=== PATIENT | female | born 1935 | race Caucasian/White ===

== ENCOUNTER → 2016-10-03 | Outpatient (CLI) | payer BC ==
[~2016-10-03] MED LIST: CALC500C70 PO; CHOL20009 PO; DOCU-94 PO; ESCI1TAB6 PO; RANI300T2 PO; SIMV20TA2 PO
[2016-10-03 17:32] LABS: URINE APPEARANCE CLEAR (CLEAR); URINE BILIRUBIN NEG (NEG); URINE COLOR YELLOW; URINE NITRITE NEG (NEG); URINE SPECIFIC GRAVITY 1.007 (1.000-1.030); UROBILINOGEN NEG (NEG)
[2016-10-03 17:42] LABS: MANUAL MICROSCOPIC REQUIRED? NO; REVIEW REQ? NO
== END | disposition home or self-care (01) ==
LOC: C.LABBC 15:00
PROVIDERS: ATTEND Family Medicine
DX: R39.9 Unspecified symptoms and signs involving the genitourinary system (principal)

== ENCOUNTER → 2016-12-31 | Outpatient (CLI) | payer BC | END | disposition home or self-care (01) | LOC: C.LABSPEC 13:24 | PROVIDERS: ATTEND Physician Assistant | DX: N90.9 Noninflammatory disorder of vulva and perineum, unspecified (principal) ==

== ENCOUNTER → 2017-01-21 | Outpatient (CLI) | payer BC ==
[2017-01-21 13:24] LABS: URINE APPEARANCE CLEAR (CLEAR); URINE BILIRUBIN NEG (NEG); URINE COLOR YELLOW; URINE EPITHELIAL CELL AUTO 0-5 /lpf (0-5); URINE NITRITE NEG (NEG); URINE SPECIFIC GRAVITY 1.005 (1.000-1.030); UROBILINOGEN NEG (NEG)
[2017-01-21 13:41] LABS: MANUAL MICROSCOPIC REQUIRED? NO; REVIEW REQ? NO
== END | disposition home or self-care (01) ==
LOC: C.LABBC 12:08
PROVIDERS: ATTEND Family Medicine
DX: R30.0 Dysuria (principal)

== ENCOUNTER → 2017-03-05 | Outpatient (CLI) | payer BC ==
--- NOTE | 2017-03-05 13:30 | DIAGNOSTIC IMAGING REPORT ---
ABDOMEN 2VIEW W/PA CHEST RTN CLINICAL HISTORY: Abdominal ll. Tenderness; left leg pain pain COMPARISON STUDY: No previous studies for comparison. FINDINGS: The soft tissues, psoas shadows, renal outlines and intestinal gas pattern appear normal. There is no evidence for bowel obstruction. There is no evidence for free intraperitoneal air. No abnormal abdominal calcifications are seen. A frontal view of the chest was performed and is unremarkable. IMPRESSION: Normal study. Electronically signed by: Pernell Oliveros M.D. 03/05/2017 1:29 PM Dictated Date/Time: 03/05/2017 1:29 PM
--- NOTE | 2017-03-05 13:32 | DIAGNOSTIC IMAGING REPORT ---
LEFT HIP UNILATERAL 2 VIEWS CLINICAL HISTORY: Abdominal ll. Tenderness; left leg pain pain COMPARISON: None. DISCUSSION: Moderate degenerative narrowing of the joint space. Mild calcific trochanteric bursitis. Minimal peripheral acetabular labral calcification. There is no evidence for soft tissue swelling. IMPRESSION: Moderate degenerative change. Mild calcific trochanteric bursitis. No acute process. Electronically signed by: Pernell Oliveros M.D. 03/05/2017 1:30 PM Dictated Date/Time: 03/05/2017 1:30 PM
== END | disposition home or self-care (01) ==
LOC: C.RADBC 13:03
PROVIDERS: ATTEND Family Medicine
DX: R10.814 Left lower quadrant abdominal tenderness (principal); M79.605 Pain in left leg; M16.12 Unilateral primary osteoarthritis, left hip

== ENCOUNTER → 2017-03-24 | Outpatient (CLI) | payer BC | END | disposition home or self-care (01) | LOC: C.LABBC 15:55 | PROVIDERS: ATTEND Family Medicine | DX: K92.1 Melena (principal) ==

== ENCOUNTER → 2017-05-28 | Outpatient (CLI) | payer BC ==
--- NOTE | 2017-05-28 15:29 | MAMMOGRAPHY REPORT ---
BILATERAL DIGITAL SCREENING MAMMOGRAM WITH CAD: 05/28/2017 CLINICAL HISTORY: Routine screening. Patient has no complaints. TECHNIQUE: Bilateral CC and MLO views were obtained. Current study was also evaluated with a Compute r Aided Detection (CAD) system. COMPARISON: Comparison is made to exams dated: 05/27/2016 mammogram, 06/22/2014 mammogram, 06/17/2013 mammogram, 06/11/2012 mammogram, 06/05/2011 mammogram - [facility], and 05/15/2007. BREAST COMPOSITION: The tissue of both breasts is heterogeneously dense, which may obscure small mas ses. FINDINGS: No suspicious mass, architectural distortion or cluster of suspicious microcalcifications is seen. IMPRESSION: ACR BI-RADS CATEGORY 1: NEGATIVE There is no mammographic evidence of malignancy. A 1 year screening mammogram is recommended. The pa tient will receive written notification of the results. Approximately 10% of breast cancers are not detected with mammography. A negative mammographic report should not delay biopsy if a clinically suggestive mass is present. Kaitlin Tesfaye M.D. ay/:05/28/2017 09:14:30 Rooms Director: Penny HIDALGO(R)(M), [facility] letter sent: Normal 1/2 BI-RADS Code: ACR BI-RADS Category 1: Negative
== END | disposition home or self-care (01) ==
LOC: C.MAMM 08:40
PROVIDERS: ATTEND Obstetrics & Gynecology
DX: Z12.31 Encounter for screening mammogram for malignant neoplasm of breast (principal)

== ENCOUNTER → 2017-09-08 | Day surgery (SDC) | payer BC ==
[2017-09-03 14:36] VITALS: Ht 160 cm; Wt 56.8 kg
[~2017-09-08] VITALS: Ht 160 cm; Wt 56.8 kg
[~2017-09-08] MED LIST changes: +ESTR10TA PV; +LIDOCAINE HCL 2% 2 ML VIAL (20MG/ML) ONE; +MULT-506 PO; +POLY335019 PO; +PROPOFOL IV EMULSION 10 MG/ML 20 ML VIAL IV ONE; -RANI300T2 PO; +SODIUM CHLORIDE 0.9% 500ML 500 ML IV ONE; +ZNTT/150 PO
--- NOTE | 2017-09-08 09:18 | Endo History and Physical ---
History & Physical Date of Service: Sep 08, 2017. Chief Complaint: Dysphagia and GERD Referring Physician: Dr. Srinivasan History of Present Illness 82 yo CF who presents for EGD secondary to Dysphagia and GERD. Past Medical History Reflux, High Cholesterol Past Surgical History Hx Cardiac Surgery: No Hx Internal Defibrillator: No Hx Pacemaker: No Hx Abdominal Surgery: No Hx of Implantable Prosthesis: No Hx Post-Op Nausea and Vomiting: No Hx Cancer Surgery: No Hx Thoracic Surgery: No Hx Orthopedic: No Hx Urinary Tract Surgery: No Family History None Social History Smoking Status: Former Smoker Hx Substance Use: No Hx Alcohol Use: Yes (OCCASIONAL/SOCIAL) Allergies Coded Allergies: Codeine (Unverified Allergy, Intermediate, nausea, 09/08/17) Current Medications Reported Home Medications Medications Dose Route/Sig Max Daily Dose Days Date Category Miralax (Polyethylene Glycol 3350) 1 Pow Pow 17 Gm PO DAILY PRN 09/03/17 Reported Vagifem (Estradiol Vaginal) 10 Mcg Tab 1 Tab PV 2XWK 09/03/17 Reported Multivitamin (Multivitamins) Tab 1 Tab PO QAM 09/03/17 Reported Zantac (Ranitidine HCl) 150 Mg Tab 150 Mg PO HS 09/03/17 Reported Lexapro (Escitalopram Oxalate) 5 Mg Tab 5 Mg PO QAM 05/07/16 Reported Vitamin D (Cholecalciferol) 2,000 Unit Tab 1 Tab PO QAM 06/08/15 Reported Colace (Docusate Sodium) 100 Mg Cap 2 Cap PO HS 06/08/15 Reported Os-Martinez 500 Plus D (Calcium/Vitamin D) Tab 500 Mg PO HS 06/08/15 Reported Zocor (Simvastatin) 20 Mg Tab 1 Tab PO HS 05/22/06 Reported Vital Signs Weight (Kilograms): 56.82 Height (Feet): 5 Height (Inches): 3 Physical Exam General Appearance: WD/WN, no apparent distress Respiratory/Chest: Auscultation: breath sounds normal Cardiovascular: Heart Auscultation: RRR Abdomen: Bowel Sounds: normal Inspection & Palpation: soft, non-distended, no tenderness, guarding & rebound Assessment and Plan Assessment: 82 yo CF who presents for EGD secondary to Dysphagia and GERD. Plan: Proceed with EGD
--- NOTE | 2017-09-08 09:39 | Discharge Instructions ---
Endoscopy Patient Instructions Date / Procedure(s) Performed Sep 08, 2017. EGD Allergy Information Coded Allergies: Codeine (Unverified Allergy, Intermediate, nausea, 09/08/17) Discharge Date / Findings Sep 08, 2017. Normal EGD Medication Instructions 1) Start Protonix 40mg by mouth each morning 1/2 hour prior to breakfast. 2) OK to resume all other medications today as prescribed Reported Home Medications Medications Dose Route/Sig Max Daily Dose Days Date Category Miralax (Polyethylene Glycol 3350) 1 Pow Pow 17 Gm PO DAILY PRN 09/03/17 Reported Vagifem (Estradiol Vaginal) 10 Mcg Tab 1 Tab PV 2XWK 09/03/17 Reported Multivitamin (Multivitamins) Tab 1 Tab PO QAM 09/03/17 Reported Zantac (Ranitidine HCl) 150 Mg Tab 150 Mg PO HS 09/03/17 Reported Lexapro (Escitalopram Oxalate) 5 Mg Tab 5 Mg PO QAM 05/07/16 Reported Vitamin D (Cholecalciferol) 2,000 Unit Tab 1 Tab PO QAM 06/08/15 Reported Colace (Docusate Sodium) 100 Mg Cap 2 Cap PO HS 06/08/15 Reported Os-Martinez 500 Plus D (Calcium/Vitamin D) Tab 500 Mg PO HS 06/08/15 Reported Zocor (Simvastatin) 20 Mg Tab 1 Tab PO HS 05/22/06 Reported Provider Instructions Activity Restrictions - No exercising or heavy lifting for 24 hours. - Do not drink alcohol the day of the procedure. - Do not drive a car or operate machinery until the day after the procedure. - Do not make any important decisions or sign important papers in 24 hours after the procedure. Following Day: - Return to full activity which may include returning to work/school. Diet Start your diet with liquids and light foods (jello, soup, juice, toast). Then eat your usual diet if not nauseated. Treatment For Common After Affects For mild abdominal pain, bloating, or excessive gas: - Rest - Eat lightly - Lie on right side Follow-Up Information Follow-up with HOWIE Dodge as above. Anesthesia Information What You Should Know You have had a procedure that required some medicine to reduce anxiety and discomfort. This treatment is called moderate sedation. After receiving the treatment, you may be sleepy, but you will be able to breathe on your own. The effects of the treatment may last for several hours. Follow these instructions along with Activity/Diet recommendations noted above: * Do NOT do anything where dizziness or clumsiness would be dangerous. * Rest quietly at home today, then you can be up and about tomorrow. * Have a responsible person stay with you the rest of today. * You may have had an I.V. today. If so, you may take the dressing off later today. Recommendations Call your doctor if: * Trouble breathing * Continuous vomiting for more than 24 hours * Temperature above 101 degrees * Severe abdominal pain or bloating * Pain not relieved by pain medicine ordered * There is increased drainage or redness from any incision * A large amount of rectal bleeding greater than 2-3 tablespoons. (If you had a polyp/s removed or have hemorrhoids, a small amount of blood - from the rectum is to be expected.) * You have any unanswered questions or concerns. IN THE EVENT OF A SERIOUS EMERGENCY, GO TO THE NEAREST EMERGENCY ROOM Your discharge instructions were prepared by provider Krishna Gaspar. Patient Instructions Signature Page Mayela Wang Patient (or Guardian) Signature/Date: I have read and understand the instructions given to me by my caregivers. Caregiver/RN/Doctor Signature/Date: The above-named patient and/or guardian has received patient instructions on this date. + Original Patient Signature Page (only) stays with chart. Please make copy for patient.
--- NOTE | 2017-09-08 09:46 | GI REPORT ---
Procedure Date: 09/08/2017 9:24 AM Procedure: Upper GI endoscopy Indications: Dysphagia, Gastro-esophageal reflux disease Medicines: Monitored Anesthesia Care Complications: No immediate complications. Estimated Blood Loss: Estimated blood loss: none. Procedure: Pre-Anesthesia Assessment: - Prior to the procedure, a History and Physical was performed, and patient medications and allergies were reviewed. The patient's tolerance of previous anesthesia was also reviewed. The risks and benefits of the procedure and the sedation options and risks were discussed with the patient. All questions were answered, and informed consent was obtained. Prior Anticoagulants: The patient has taken no previous anticoagulant or antiplatelet agents. ASA Grade Assessment: II - A patient with mild systemic disease. After reviewing the risks and benefits, the patient was deemed in satisfactory condition to undergo the procedure. After obtaining informed consent, the endoscope was passed under direct vision. Throughout the procedure, the patient's blood pressure, pulse, and oxygen saturations were monitored continuously. The scope was introduced through the mouth, and advanced to the second part of duodenum. The upper GI endoscopy was accomplished without difficulty. The patient tolerated the procedure well. Findings: The esophagus was normal. The stomach was normal. The examined duodenum was normal. Impression: - Normal esophagus. - Normal stomach. - Normal examined duodenum. - No specimens collected. Recommendation: - Resume previous diet. - Use Protonix (pantoprazole) 40 mg PO daily. - Continue present medications. - Return to GI office as previously scheduled. Krishna Gaspar DO 09/08/2017 9:46:05 AM This report has been signed electronically. Note Initiated On: 09/08/2017 9:24 AM I attest to the content of the Intraoperative Record and orders documented therein, exceptions below
[2017-09-08 10:08] VITALS: BP 162/65; PULSE 66; O2SAT 99
--- NOTE | 2017-09-08 10:34 | Anesthesiology Progress Note ---
Anesthesia Post Op Note Date & Time Sep 08, 2017 at 10:34 Vital Signs Pain Intensity: 0 Vital Signs Past 12 Hours Date Time Temp Pulse Resp B/P (MAP) Pulse Ox O2 Delivery O2 Flow Rate FiO2 09/08/17 10:08 66 16 162/65 (97) 99 Room Air 09/08/17 09:53 70 16 154/62 (92) 98 Room Air 09/08/17 09:38 71 16 117/55 (75) 95 Room Air 09/08/17 09:19 36.9 71 18 172/72 (105) 96 Room Air Notes Mental Status: alert / awake / arousable, participated in evaluation Pt Amnestic to Procedure: Yes Nausea / Vomiting: adequately controlled Pain: adequately controlled Airway Patency, RR, SpO2: stable & adequate BP & HR: stable & adequate Hydration State: stable & adequate Anesthetic Complications: no major complications apparent
== END | disposition home or self-care (01) ==
LOC: C.GI 09:01
PROVIDERS: ATTEND Internal Medicine
DX: R13.10 Dysphagia, unspecified (principal); K21.9 Gastro-esophageal reflux disease without esophagitis; Z88.5 Allergy status to narcotic agent; E78.00 Pure hypercholesterolemia, unspecified; Z87.891 Personal history of nicotine dependence; Z79.899 Other long term (current) drug therapy; Z90.89 Acquired absence of other organs

== ENCOUNTER → 2017-11-11 | Outpatient (CLI) | payer BC ==
[~2017-11-11] MED LIST changes: -LIDOCAINE HCL 2% 2 ML VIAL (20MG/ML) ONE; -PROPOFOL IV EMULSION 10 MG/ML 20 ML VIAL IV ONE; +RANI150T85 PO; -SODIUM CHLORIDE 0.9% 500ML 500 ML IV ONE; -ZNTT/150 PO
[2017-11-11 11:42] LABS: ALT/SGPT 23 U/L (12-78); BLOOD UREA NITROGEN 13 mg/dl (7-18); CALCIUM 9.7 mg/dl (8.5-10.1); CARBON DIOXIDE 29 mmol/L (21-32); CHOLESTEROL 196 mg/dl (0-200); GLUCOSE 98 mg/dl (70-99); POTASSIUM 3.8 mmol/L (3.5-5.1); SODIUM 139 mmol/L (136-145)
[2017-11-11 11:46] LABS: HEMOGLOBIN A1C 5.9 % (4.5-5.6); LDL CHOLESTEROL CALCULATED 123 mg/dl
== END | disposition home or self-care (01) ==
LOC: C.LABBC 08:36
PROVIDERS: ATTEND Family Medicine
DX: E78.5 Hyperlipidemia, unspecified (principal); R73.01 Impaired fasting glucose

== ENCOUNTER → 2017-11-12 | Outpatient (CLI) | payer BC | END | disposition home or self-care (01) | LOC: C.LABSPEC 17:41 | PROVIDERS: ATTEND Family Medicine | DX: N39.0 Urinary tract infection, site not specified (principal) ==

== ENCOUNTER → 2018-03-28 | Outpatient (CLI) | payer BC ==
[~2018-03-28] MED LIST changes: -CHOL20009 PO; +CLIN300C2 PO; -ESTR10TA PV; +RANI150T2 PO; -RANI150T85 PO; +SIMV-151 PO; -SIMV20TA2 PO
== END | disposition home or self-care (01) ==
LOC: C.LABSPEC 10:37
PROVIDERS: ATTEND Family Medicine
DX: N39.0 Urinary tract infection, site not specified (principal)

== ENCOUNTER → 2018-04-27 | Outpatient (CLI) | payer BC | END | disposition home or self-care (01) | LOC: C.LABSPEC 13:43 | PROVIDERS: ATTEND Obstetrics & Gynecology | DX: R39.9 Unspecified symptoms and signs involving the genitourinary system (principal) ==

== ENCOUNTER 2024-11-06 15:57 | Observation (INO) ==
--- OUTSIDE RECORDS SUMMARY | 2024-11-06 16:04 | External Medical Summary | Continuity of Care Document ---
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 Name Role Phone Catrachita Srinivasan Primary Care Physician [phone] [id number] Date(s): 09/27/24 - 09/27/24 [facility] [address] [place] [id number] [address] [address] Encounter Diagnosis Displaced fracture of base of fifth metacarpal bone, right hand, subsequent encounter for fracture with routine healing(Discharge Diagnosis) - 09/27/24 Discharge Disposition: Home or Self Care Attending Physician: JT Mckeon Adam Allergies, Adverse Reactions, Alerts Substance Criticality Severity Reaction Reaction Severity Status codeine nausea Active Levaquin nausea Active Assessment and Plan Extracted from: Title:Orthopaedics Office Visit Note Author:Nelida jimenez PA-C, Adam Date:09/27/24 1.Displaced fracture of ba se of fifth metacarpal bone, right hand, subsequent encounter for fracture with routine healing 6 to 7 weeksfrom original injury, found to havea minimally displacedbasefifth metacarpal fracture3.5 weeks ago treated conservatively. Patient doing very well overall. She has no pain subjectively, and on examthe onlypositive finding is very minimal discomfort elicitedin the ulnar hand with ulnar deviation of the wrist. No focal tenderness is appreciated. Her range of motion is fulland she is neurovascularlyintact. Her x-ray shows evidence of continuedbone healing. Fracture appears to be healing. Advised the patient that she can wean out of the cock up wristbrace at this pointand can perform range of motionand light activity. Advised her to hold off on any heavy activity.Avoid any activity that causes pain. Will see her back in 4 to 6 weekswith repeat right hand x-rays.As long as she is doing well she can continue to advance her activity. Medications Colace Start: 07/18/11 9:21:00 AM EST, 1 tab, PO, Daily Start Date: 07/18/11 Status: Ordered escitalopram 5 mg oral tablet Start: 03/18/17 8:31:00 AM EDT, 1 tab, PO, Daily Start Date: 03/18/17 Status: Ordered famotidine 40 mg oral tablet Start: 04/29/22 10:04:00 AM EDT, 1 tab, PO, Daily Start Date: 04/29/22 Status: Ordered Gemtesa 75 mg oral tablet Start: 12/03/23 9:17:00 AM EDT, 1 tab, Daily Start Date: 12/03/23 Status: Ordered methenamine hippurate 1 g oral tablet Start: 08/02/22 3:51:00 PM EST Start Date: 08/02/22 Status: Ordered MiraLax Start: 08/02/15 10:19:00 AM EST, as needed Start Date: 08/02/15 Status: Ordered multivitamin Start: 07/18/11 9:19:00 AM EST, 1 tab, PO, Daily, tab Start Date: 07/18/11 Status: Ordered pantoprazole 40 mg oral delayed release tablet Start: 10/06/23 2:25:00 PM EST Start Date: 10/06/23 Status: Ordered tretinoin 0.05% topical cream Start: 12/03/23 9:27:00 AM EDT, 1 appl, topical, qhs, Disp# 20 g, Refills: 2, To face every other night, Pharmacy: [id number] Start Date: 12/03/23 Status: Ordered Vitamin D3 2000 intl units oral capsule Start: 07/23/19 10:25:00 AM EST, 1 cap, PO, Daily, Disp# 30 cap, Refills: 3, Pharmacy: [id number] Start Date: 07/23/19 Stop Date: 11/20/19 Status: Ordered Zocor 20 mg oral tablet Start: 07/18/11 9:19:00 AM EST, 1 tab, PO, qhs Start Date: 07/18/11 Status: Ordered Mental Status 09/27/24 Barriers to Learning one year None evide nt Mandatory Health Literacy Documentation Yes Health Literacy Communication Barriers N ever Primary Language Belizean Problem List Condition Confirmation Course Effective Dates Status Health St atus Informant AK (actinic keratosis) Confirmed Active Androgenetic alopecia Confirmed Active Closed fracture of 5th metacarpal Confirmed Active Rectocele Confirmed Active Elevated cholesterol Confirmed Active TRICE (stress urinary incontinence, female) Confirmed Active Left foot pain Confirmed Active Closed fracture of 5th metacarpal Confirmed Active Fracture of superior pubic ramus Confirmed Active Left hand pain Confirmed Active Hip pain, left Confirmed Active History of actinic keratoses Confirmed Active Inflamed seborrheic keratosis Confirmed Active Dermatitis Confirmed Active Pruritus Confirmed Active Left knee pain Confirmed Active Leg length inequality Confirmed Active Lentigo Confirmed Active Low back pain Confirmed Active Neck pain Confirmed 10/02/10 Active Notalgia paresthetica Confirmed Active Osteoarthritis, hip, bilateral Confirmed Active Gluteal pain Confirmed Active Pain of left heel Confirmed Active Peroneal tendinitis, right leg Confirmed Active Plantar fasciitis Confirmed Active Plantar fasciitis, right Confirmed Active 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 Low back pain Confirmed Active Recurrent UTI Confirmed Active Rosacea Confirmed Active Sacroiliac joint inflamed Confirmed Active Seborrheic keratoses Confirmed Active Shoulder pain Confirmed 10/02/10 Active Sun-damaged skin Confirmed Active Left trigger finger Confirmed Active Vitamin D deficiency Confirmed Active Diagnosis Diagnosis Type Effective Dates Health Status Clinical Service Informant Displaced fracture of base of fifth metacarpal bone, right hand, subsequent encounter for fracture with routine healing Discharge Diagnosis 09/27/24 Procedures Procedure Date Related Diagnosis Body Site Status Tonsillectomy and adenoidectomy 1940 Completed Social History Social History Type Response Smoking Status Never smoked cigaret carlos Sex Female Sex Representation Female (finding) Ortho Outpt Note * JT Mckeon, Geraldo: PERFORM Event Display: Ortho Outpt Note Authored Date: [id number] Chief Complaint R hand f/u History of Present Illness Akash [id number] female who returns to the clinic todayforongoing fracturemanagement related to herrightbase fifth metacarpal fracture. Original date of injury 6 to 7 weeks ago. Was initially seenin clinic on 09/03/2024nd was demonstrating evidence ofbony callus formationand conservative management was recommended. She wasgiven a cock up wristbrace to wear. She follows up today and states that she is doing very well. She has been wearing the bracemostof the time.States that she can "tell somethingis different"on theoutside of the hand with range of motionbut denies anydecreasedrange of motion or pain with range of motion. No swelling or bruising. No numbness or tingling in her fingers. Is not taking anything forpain at this point. Physical Exam CONSTITUTIONAL: Well developed, well nourished, in no acute distress sitting upright in chair CARDIOVASCULAR: Right radial pulse 2+ MUSCULOSKELETAL: Right upper extremity:No soft tissue swelling. Possibly a slightbony prominence over the base of the fifth metacarpal. No ecchymosis. No focal tenderness about the hand specificallyover thebase of the fifth metacarpal.Full extensionis appreciatedin all fingers. Able to make a full fist. No rotational deformity to the fingers.Full and symmetric range of motion in the wrist compared to contralateral with flexion, extension,radial and ulnar deviation. Very minimaldiscomfort elicited with ulnar deviation. Motor functionintactwith resistedthumb extension and finger adduction, resistedwrist extension, and able to oppose thumb to little finger. SKIN: [place], warm, dry NEUROLOGIC: No sensory deficits in bilateral fingers to light touch Diagnostic Results 3 views of the righthandobtained in clinic todayand initially interpreted by myself:Minimally displacedfracture at the base of the fifth metacarpal is appreciated and there is evidence ofbony callus formation,callus is more advancedcompared tox-rays from 09/03/2024. Assessment/Plan 1.Displaced fracture of base of fifth metacarpal bone, right hand, subsequent encounter for fracture with routine healing 6 to 7 weeksfrom original injury, found to havea minimally displacedbasefifth metacarpal fracture3.5 weeks ago treated conservatively. Patient doing very well overall. She has no pain subjectively, and on examthe onlypositive finding is very minimal discomfort elicitedin the ulnar hand with ulnar deviation of the wrist. No focal tenderness is appreciated. Her range of motion is fulland she is neurovascularlyintact. Her x-ray shows evidence of continuedbone healing. Fracture appears to be healing. Advised the patient that she can wean out of the cock up wristbrace at this pointand can perform range of motionand light activity. Advised her to hold off on any heavy activity.Avoid anyactivity that causes pain. Will see her back in 4 to 6 weekswith repeat right hand x-rays.As long as she is doing well she can continue to advance her activity. Problem List/Past Medical History Ongoing AK (actinic keratosis) Androgenetic alopecia Closed fracture of 5th metacarpal Closed fracture of 5th metacarpal Degenerative joint disease of knee Dermatitis Elevated cholesterol Fracture of superior pubic ramus Gluteal pain Hip pain, left History of actinic keratoses Inflamed seborrheic keratosis Left foot pain Left hand pain Left knee pain Left trigger finger Leg length inequality Lentigo Low back pain Low back pain Neck pain Notalgia paresthetica Osteoarthritis, hip, bilateral Pain of left heel Peroneal tendinitis, right leg Plantar fasciitis Plantar fasciitis, right Pruritus Rectocele Recurrent UTI Rosacea Sacroiliac joint inflamed Seborrheic keratoses Shoulder pain TRICE (stress urinary incontinence, female) Sun-damaged skin Vitamin D deficiency Procedure/Surgical History Tonsillectomy and adenoidectomy| Service Date: 1942 Medications cholecalciferol(Vitamin D3 2000 intl units oral capsule), 1999 Int_Unit= 1 cap, PO, Daily, 3 refills docusate(Colace), 1 tab, PO, Daily escitalopram(escitalopram 5 mg oral tablet), 5 mg= 1 tab, PO, Daily famotidine(famotidine 40 mg oral tablet), 40 mg= 1 tab, PO, Daily methenamine(methenamine hippurate 1 g oral tablet) multivitamin, 1 tab, PO, Daily pantoprazole(pantoprazole 40 mg oral delayed release tablet) polyethylene glycol 3350(MiraLax) simvastatin(Zocor 20 mg oral tablet), 20 mg= 1 tab, PO, qhs tretinoin topical(tretinoin 0.05% topical cream), 1 appl, topical, qhs, 2 refills vibegron(Gemtesa 75 mg oral tablet), 75 mg= 1 tab, Daily Allergies Levaquinnausea codeinenausea Social History Smoking Status Never smoked cigarettes Family History Heart disease: Unknown. Health Status Family Member(s) Recommendations Health Maintenance Pending(in the next year) OverDue Adult Influenza Vaccine due03/01/24and every 1year Due Adult COVID-19 Vaccination due09/27/24Unknown Frequency Adult Social Determinants of Health Screening due09/27/24Unknown Frequency Adult Tdap/Td Vaccine due09/27/24Unknown Frequency Medicare Annual Wellness Visit due09/27/24and every 1year Pneumococcal Vaccine Older Adults due09/27/24One-time only Shingles Vaccine due09/27/24One-time only Due In Future Body Mass Index not due until07/07/25and every 366day Satisfied(in the past 1 year) Satisfied Body Mass Index on07/06/24.Satisfied by GUILLE Azevedo Mary Electronic Signature on File Electronically Reviewed/Signed by: Geraldo Mckeon PA-C Author Signature Dt/Tm:09/27/2024 01:06 PM Division of Sports Medicine Electronically Reviewed/Signed by: Bonifacio Ho MD Cosigner Signature Dt/Tm: 09/27/2024 01:18 PM Member Certification Manager for Clinical Affairs, [facility] Alycia Professor in Orthopaedics Monorail Crane Operator, [facility] Patient Care team information Care Team Personnel Name: MD Craig, Catrachita Frausto Position: Referring Member Role: Primary Care Provider Address: [address] [place] [id number] Care Team Related Persons Name: OZIEL NICOLE
[2024-11-06 17:05] LABS: Alanine Aminotransferase 14 U/L (7-52); Albumin Globulin Ratio 1.6 (0.9-2); Albumin Level 4.5 gm/dl (3.4-5.0); Alkaline Phosphatase 62 U/L (34-104); Anion Gap 4 (3-11); Aspartate Aminotransferase 18 U/L (13-39); BUN Creatinine Ratio 26.5 (10-20); Bilirubin,Total 0.3 mg/dl (0.2-1.0); Blood Urea Nitrogen 18 mg/dl (6-23); Calcium 10.4 mg/dl (8.6-10.3); Carbon Dioxide 29 mmol/L (21-32); Chloride 101 mmol/L (98-107); Globulin 2.9 gm/dl (2.5-4.0); Glucose 117 mg/dl (70-99(Fasting)); Sodium 134 mmol/L (136-145); Total Protein 7.4 gm/dl (6.0-8.3)
[2024-11-06 17:10] LABS: Basophils # (auto) 0.06 K/uL (0.00-0.20); Basophils % (auto) 0.7 %; Eosinophils # (auto) 0.12 K/uL (0.00-0.50); Eosinophils % (auto) 1.4 %; Hematocrit (blood only) 40.2 % (37.0-47.0); Hemoglobin 13.6 g/dl (12.0-16.0); Immature Granulocytes # (auto) 0.03 K/uL (0.01-0.20); Immature Granulocytes % (auto) 0.4 %; Lymphocytes # (auto) 2.29 K/uL (1.20-3.40); Lymphocytes % (auto) 27.6 %; Mean Corpuscular Hemoglobin 30.6 pg (25.0-34.0); Mean Corpuscular Hgb Conc 33.8 g/dL (32.0-36.0); Mean Corpuscular Volume 90.5 fL (80.0-100.0); Mean Platelet Volume 9.8 fL (9.4-12.4); Monocytes # (auto) 0.73 K/uL (0.11-0.59); Monocytes % (auto) 8.8 %; Neutrophils # (auto) 5.08 K/uL (1.40-6.50); Neutrophils % (auto) 61.1 %; Platelet Count 251 K/uL (130-400); RDW Standard Deviation 42.8 fL (36.4-46.3); Red Blood Count 4.44 M/uL (4.20-5.40); White Blood Count 8.31 K/ul (4.8-10.8)
--- NOTE | 2024-11-06 17:19 | XRay Report ---
HISTORY: Weakness. TECHNIQUE: Portable AP radiograph of the chest COMPARISON: None. FINDINGS: No focal lung consolidation. No pneumothorax or pleural effusion. Normal heart size. Left-sided aortic arch contains atherosclerotic calcification. Midline trachea. No acute osseous abnormality. Included upper abdomen is unremarkable. IMPRESSION: No acute cardiopulmonary findings. Electronically signed by Yg Horvath 11-06-2024 5:14 PM
[2024-11-06 17:20] LABS: Thyroid Stimulating Hormone 2.443 uIu/ml (0.300-4.500)
[2024-11-06 17:23] LABS: Base Excess VBG 2.9 mEq/L; HCO3 VBG 28 mmol/L; Oxygen Saturation VBG 66.3 %; PCO2 VBG 43 mmHg (38-50); PO2 VBG 36 mmHg; pH VBG 7.42 (7.36-7.41)
[2024-11-06] MEDS: OPTIRAY 320 125ml IV ONE (17:43)
--- NOTE | 2024-11-06 18:07 | CT Scan Report ---
HISTORY: Amnesia. Altered mental status. TECHNIQUE: CT of the head without contrast. Images are presented in axial, sagittal, and coronal reformats. COMPARISON: None. FINDINGS: No evidence of acute intracranial hemorrhage, abnormal extra-axial fluid collection, mass effect, or midline shift. Mild chronic microvascular ischemic changes. Chiu-white differentiation is maintained. Ventricular caliber is appropriate for the degree of volume loss. Fourth ventricle is midline. The basal cisterns are patent. The soft tissues of the skull base and scalp are unremarkable. The globes and orbits are unremarkable.Left maxillary sinus mucosal thickening with air-fluid level. Mastoid air cells are well aerated. No calvarial fracture. IMPRESSION: 1. No acute intracranial findings. If there is concern for acute infarct, consider brain MRI with diffusion weighted imaging for more sensitive evaluation. 2. Mild volume loss and chronic microvascular ischemic changes. 3. Acute left maxillary sinusitis. Electronically signed by Yg Horvath 11-06-2024 6:04 PM
--- NOTE | 2024-11-06 18:11 | CT Scan Report ---
HISTORY: Amnesia and altered mental status. TECHNIQUE: Helical CT angiography of the brain was performed following uneventful administration 119 mL of Optiray 320 IV contrast. Coronal and sagittal 3D MIP reconstructions are provided. COMPARISON: CT of the head without contrast from the same day. FINDINGS: The intradural vertebral arteries are patent. The basilar artery is patent. The posterior cerebral arteries are patent. Mild atherosclerotic calcification of the cavernous internal carotid arteries. 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 Additional small aneurysm from the supraclinoid left internal carotid artery on series 6 image 86 Measuring 0.3 cm. Both A1 segments are present and patent. Patent anterior communicating artery. The anterior cerebral artery branches are patent. 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 The right M1 and proximal M2 segment branches are patent. The left M1 and proximal M2 segment branches are patent. The more distal MCA branches appear symmetric. The transverse sinuses and superior sagittal sinus appear patent. No enhancing intracranial mass or vascular malformation. The soft tissues about the skull base and scalp are unremarkable. Globes and orbits are unremarkable. Left maxillary sinus mucosal thickening and air-fluid level. IMPRESSION: * No evidence of central vessel occlusion or focal hemodynamically significant stenosis. 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 The findings were discussed with the ordering provider Dr. Neha Mascorro at 6:09 PM on 11/06/2024. Electronically signed by Yg Horvath 11-06-2024 6:10 PM
--- NOTE | 2024-11-06 18:15 | CT Scan Report ---
HISTORY: Amnesia and altered mental status TECHNIQUE: CT angiography of the neck was performed following administration 119 mL of Optiray 320 IV contrast. Coronal and sagittal 3D MIP reconstructions are provided. COMPARISON: CT of the head and CTA of the head from the same day. FINDINGS: The aortic arch has a normal three-vessel branch pattern. There is mild stenosis of the origin of the left subclavian artery. The common carotid arteries are patent. Partially retropharyngeal course of the right common carotid artery. Atherosclerotic plaque at the carotid bifurcations resulting in less than 50% narrowing of the proximal internal carotid arteries. There is luminal irregularity/beading of the mid and distal right internal carotid artery. The internal carotid arteries are patent to the skull base. The cervical internal carotid arteries are patent and relatively codominant. The soft tissues of the neck and upper chest are unremarkable. Left maxillary sinus mucosal thickening and air-fluid level. The lung apices demonstrate no suspicious findings. There is biapical pleural thickening and scarring. Degenerative changes of the spine. No acute osseous abnormality is identified. IMPRESSION: 1. No evidence of carotid or vertebral significant stenosis, occlusion, or dissection. 2. Luminal irregularity/beading involving the mid and distal right cervical internal carotid artery could represent vasospasm or fibromuscular dysplasia. 3. Atherosclerotic plaque at the carotid bifurcations resulting in less than 50% stenosis of the proximal internal carotid arteries. 4. Chronic and/or incidental findings as detailed above. Electronically signed by Yg Horvath 11-06-2024 6:14 PM
[2024-11-06] MEDS ORDERED: PHARMACIST DISCHARGE MED REC CONSULT PRN (18:28)
--- NOTE | 2024-11-06 18:50 | History & Physical Report ---
Date of Service November 06, 2024 Assessment & Plan (1) Transient ischemic attack: Plan: Expressive aphasia in an 89 yo female with hyperlipidemia and prediabetes. Patient no longer having any focal deficits or signs of aphasia. Patient admitted for TIA. WIll allow for permissive hypertension. ordered one time dose of hydralazine as bp was above goal. Will obtain an MRI. Patient received asa 324 mg in ED. Will order loading dose of plavix. switch to high dose statin 40 mg of atorvastatin. (2) Hyperlipidemia: Plan: as noted above. (3) Mixed stress and urge urinary incontinence: Plan: resume vebegron. History of Present Illness Chief Complaint: aphasia Primary Care Provider: Catrachita Srinivasan MD 89-year-old female with PMH of prediabetes and dyslipidemia presents to the hospital with an episode of aphasia. This pccurred while she was talking to her daughter on the phone. Patient was trying to read a the amount owed on the bill and couldn't find the right words.. The amount was 80, and patient would say 8 thousand struggling with moments of silence. Daughter asked patient to go to the hospital which patient interpreted as driving herself instead of calling an ambulance. During the drive, patient reportsno other symptoms of focal weakness or paresthesias. Once in the ED, Patient's aphasia have also resolved and no neurological deficits were noted on exam by ER doctor. She had a CTA head and neck which was negative for any acute stroke. Admission was called for TIA Allergies Allergy/AdvReac Type Severity Reaction Status Date / Time codeine AdvReac Unknown 40 yrs ago Verified 11/06/24 19:39 : nausea levofloxacin [From Levaquin] AdvReac Unknown UPSET Verified 11/06/24 19:39 STOMACH Home Medications Medication Instructions Recorded Confirmed Type docusate sodium 100 mg capsule 100 mg PO QPM 07/09/18 11/06/24 History (Colace) multivitamin 1 tab PO QAM 07/09/18 11/06/24 History cholecalciferol (vitamin D3) 25 5,000 unit PO QPM 11/15/21 11/06/24 History mcg (1,000 unit) tablet (Vitamin D3) polyethylene glycol 3350 17 17 g PO QAM 03/11/23 11/06/24 History gram/dose oral powder (Miralax) denosumab 60 mg/mL subcutaneous 60 mg subcut Q6MO 05/16/23 11/06/24 History syringe (Prolia) calcium carbonate 260 mg PO DAILY 10/23/23 11/06/24 History ipratropium bromide 21 mcg (0.03 2 spray intranasal TID PRN nasal 04/02/24 11/06/24 Rx %) nasal spray drainage #30 mL famotidine 20 mg tablet 20 mg PO QPM #90 tabs 05/19/24 11/06/24 Rx escitalopram oxalate 20 mg tablet 20 mg PO QAM #90 tabs 07/16/24 11/06/24 Rx psyllium husk (with sugar) 3.4 1 tbsp PO HS 09/02/24 11/06/24 History gram/12 gram oral powder (Metamucil (with sugar)) estradiol 0.01% (0.1 mg/gram) 1 g vaginal 2XWK #42.5 grams 09/29/24 11/06/24 Rx vaginal cream simvastatin 40 mg tablet 40 mg PO HS #90 tabs 09/30/24 11/06/24 Rx pantoprazole 20 mg tablet,delayed 20 mg PO DAILY #90 tabs 10/04/24 11/06/24 Rx release vibegron 75 mg tablet (Gemtesa) 75 mg PO DAILY #90 tabs 10/06/24 11/06/24 Rx fluticasone propionate 50 2 spray intranasal DAILY PRN 11/06/24 11/06/24 History mcg/actuation nasal Congestion spray,suspension Past Med/Surg History Problem List TIA (transient ischemic attack) (Acute) Transient ischemic attack LPRD (laryngopharyngeal reflux disease) 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 Recurrent UTI not current/hx of Urinary incontinence Osteoporosis Diverticular disease Abdominal pain of multiple sites left / ongoing problem: reason for upcoming procedure. Polymyalgia Osteoarthritis GERD (gastroesophageal reflux disease) Hyperlipidemia Anxiety Surgical History History of eye surgery for dry eye ? / both eyes. History of surgery injection for urinary incontinence/unsuccessful History of cataract surgery BOTH History of esophagogastroduodenoscopy (EGD) History of colonoscopy History of tooth extraction wisdom teeth History of tonsillectomy and adenoidectomy Family History Unknown Coronary arteriosclerosis Grandfather (Maternal) Pancreatic neoplasm Myocardial infarction Father Hypertension Cardiac disorder Grandmother (Paternal) Hypertension Grandfather (Paternal) Hypertension Denies family history of Ovarian cancer Prostate cancer Crohn's disease Breast cancer Bleeding disorder Colorectal cancer Social History Smoking Status: Never smoker Tobacco Type: Cigarettes Age Started Using Tobacco: 22; Age Quit Using Tobacco: 57; packs per day: 0.10; Second Hand Exposure: No; Do You Dip or Chew Tobacco: No; Hx Alcohol Use: No Hx Substance Use: No Preferred Language: Romansh Communication Ability: Effective Visual Impairment: No Limitations Hearing Ability: Normal Museum Specialist Required: No Beliefs That Will Affect Care: None marital status: / Current Living Situation: Alone current occupational status: retired How many Children do You have: 3 Other Information That Helps Us Care for You: No Feels Safe at Home: Yes Safety Concerns: Feels Safe At This Time Childhood Exposure to Second-Hand Smoke: No Diet: regular caffeine: No during the past year weight has: remained stable Dental Care, Regularly: Yes Physical Activity Frequency: Daily Seatbelt Use: always Sunscreen Use: Yes Do you think of yourself as: straight/heterosexual Assistive Devices: Glasses Review of Systems Constitutional: no fever, no sweats and no body aches Eyes: no blind spots and no discharge Ear, Nose, Mouth, Throat: no ear pain and no tinnitus Respiratory: no cough and no dyspnea Cardiovascular: no chest pain and no radiating jaw, neck or arm pain Gastrointestinal: no abdominal pain and no early satiety Musculoskeletal: no back pain Integumentary: no acne Neurologic: no gait abnormality and no localized weakness Endocrine: no fatigue Hematologic / Lymphatic: no easy bleeding Physical Exam Constitutional: WD/WN, vitals as above Eyes: PERRL, conjunctivae normal, anicteric sclerae Neck: trachea midline, no thyromegaly Respiratory: normal respiratory effort, lungs clear to auscultation Cardiovascular: RRR, no murmur, no edema Gastrointestinal (Abdomen): normal bowel sounds, soft, nontender, no hepatosplenomegaly Musculoskeletal: no cyanosis or clubbing, extremities motor strength 5/5 Neurologic: PERRL, EOMI, accommodation nl, no face palsy, no dysarthria Psychiatric: A+Ox3, euthymic affect Results & Data Results & Data Vital Signs (Past 12 Hours) Vital Signs Temp Pulse Pulse Resp BP BP Pulse Ox 11/06/24 17:58 82 11/06/24 17:00 78 20 207/95 H 97 11/06/24 16:18 11/06/24 16:12 36.6 C 78 18 186/84 H 98 O2 Del Method 11/06/24 17:58 11/06/24 17:00 Room Air 11/06/24 16:18 Room Air 11/06/24 16:12 Room Air Code Status & VTE Plan Code Status DNR/DNI PG Care Time/CCT Total # of Minutes Spent Total Time Spent with Patient: Total time spent is greater than 50% in coordination of care (as documented) at patient's floor/unit and/or counseling patient: Coding Level of Care Code 75807 INT INP/OBS CARE 3/75MIN Diagnoses Transient ischemic attack G45.9 Hyperlipidemia E78.5 Mixed stress and urge urinary incontinence N39.46
[2024-11-06] MEDS: ASPIRIN 81 MG CHEW PO STA (19:02)
--- NOTE | 2024-11-06 19:03 | Emergency Department Note ---
History of Present Illness General Chief complaint: Confusion Stated complaint: CONFUSION, MEMORY PROB. HEAD PRESSURE Time Seen by Provider: 11/06/24 16:38 History of Present Illness Provider complaint: Confusion 89-year-old female presents emergency department for confusion. Patient reports that approxi-1 hour ago she was on the phone with her daughter and then was having difficulty speaking and remembering things. She states she could not get her words out. Patient reports that her daughter told her that she might be having a stroke and told her to come to the emergency department to be evaluated so the patient drove herself to the emergency department. Patient reports she has no current symptoms. No headaches. No numbness or tingling. No falls or traumas. No blood thinners. Home Medications Medication Instructions Recorded Confirmed Type docusate sodium 100 mg capsule 100 mg PO QPM 07/09/18 09/29/24 History (Colace) multivitamin 1 tab PO QAM 07/09/18 09/29/24 History cholecalciferol (vitamin D3) 25 5,000 unit PO QPM 11/15/21 09/29/24 History mcg (1,000 unit) tablet (Vitamin D3) polyethylene glycol 3350 17 17 g PO QAM 03/11/23 09/29/24 History gram/dose oral powder (Miralax) denosumab 60 mg/mL subcutaneous 60 mg subcut Q6MO 05/16/23 09/29/24 History syringe (Prolia) calcium carbonate 260 mg PO DAILY 10/23/23 09/29/24 History ipratropium bromide 21 mcg (0.03 2 spray intranasal TID PRN nasal 04/02/24 09/29/24 Rx %) nasal spray drainage #30 mL famotidine 20 mg tablet 20 mg PO QPM #90 tabs 05/19/24 09/29/24 Rx escitalopram oxalate 20 mg tablet 20 mg PO QAM #90 tabs 07/16/24 09/29/24 Rx fluticasone propionate 50 2 spray intranasal DAILY 4 weeks 08/16/24 09/29/24 Rx mcg/actuation nasal #15.8 mL spray,suspension psyllium husk (with sugar) 3.4 1 tbsp PO HS PRN 09/02/24 09/29/24 History gram/12 gram oral powder (Metamucil (with sugar)) estradiol 0.01% (0.1 mg/gram) 1 g vaginal 2XWK #42.5 grams 09/29/24 09/29/24 Rx vaginal cream simvastatin 40 mg tablet 40 mg PO HS #90 tabs 09/30/24 11/06/24 Rx pantoprazole 20 mg tablet,delayed 20 mg PO DAILY #90 tabs 10/04/24 11/06/24 Rx release vibegron 75 mg tablet (Gemtesa) 75 mg PO DAILY #90 tabs 10/06/24 11/06/24 Rx Allergies Allergy/AdvReac Type Severity Reaction Status Date / Time codeine AdvReac Unknown 40 yrs ago Verified 09/29/24 14:22 : nausea levofloxacin [From Levaquin] AdvReac Unknown UPSET Verified 09/29/24 14:22 STOMACH Past Med/Surg History Problem List (Updated 11/06/24 @ 19:10 by Adolfo Gallo MD) TIA (transient ischemic attack) (Acute) Transient ischemic attack LPRD (laryngopharyngeal reflux disease) 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 Recurrent UTI not current/hx of Urinary incontinence Osteoporosis Diverticular disease Abdominal pain of multiple sites left / ongoing problem: reason for upcoming procedure. Polymyalgia Osteoarthritis GERD (gastroesophageal reflux disease) Hyperlipidemia Anxiety Surgical History History of eye surgery for dry eye ? / both eyes. History of surgery injection for urinary incontinence/unsuccessful History of cataract surgery BOTH History of esophagogastroduodenoscopy (EGD) History of colonoscopy History of tooth extraction wisdom teeth History of tonsillectomy and adenoidectomy Family History Unknown Coronary arteriosclerosis Grandfather (Maternal) Pancreatic neoplasm Myocardial infarction Father Hypertension Cardiac disorder Grandmother (Paternal) Hypertension Grandfather (Paternal) Hypertension Denies family history of Ovarian cancer Prostate cancer Crohn's disease Breast cancer Bleeding disorder Colorectal cancer Social History Smoking Status: Never smoker Tobacco Type: Cigarettes Age Started Using Tobacco: 22; Age Quit Using Tobacco: 57; packs per day: 0.10; Second Hand Exposure: No; Do You Dip or Chew Tobacco: No; Hx Alcohol Use: Yes Alcohol type: wine Alcohol Intake Frequency: Monthly or Less Hx Substance Use: No Preferred Language: R[place] Communication Ability: Effective Visual Impairment: No Limitations Hearing Ability: Normal Banquet Chef Required: No Beliefs That Will Affect Care: None marital status: / Current Living Situation: Alone current occupational status: retired How many Children do You have: 3 Feels Safe at Home: Yes Childhood Exposure to Second-Hand Smoke: No Diet: regular caffeine: No during the past year weight has: remained stable Dental Care, Regularly: Yes Physical Activity Frequency: Daily Seatbelt Use: always Sunscreen Use: Yes Do you think of yourself as: straight/heterosexual Assistive Devices: Glasses Physical Exam Vital Signs Vital Signs - 24 hr 11/06/24 16:12 11/06/24 16:18 11/06/24 17:00 Temperature 36.6 C Temperature Source Temporal Artery Scan Pulse Rate 78 Pulse Rate [Apical] 78 Respiratory Rate 18 20 Respiratory Effort / Characteristics Non-Labored Spontaneous Respiratory Depth Normal Respiratory Pattern Regular Blood Pressure 186/84 H Blood Pressure [Right Arm] 207/95 H Blood Pressure Mean 118 Blood Pressure Mean [Right Arm] 132 Blood Pressure Position Sitting Pulse Oximetry 98 97 Oxygen Delivery Method Room Air Room Air Room Air Sepsis Recent Fever Within 48 Hours No Sepsis New/Unexplained Change in Mental Status N/A Sepsis Action Taken by Nursing No Action Required 11/06/24 17:58 Temperature Temperature Source Pulse Rate 82 Pulse Rate [Apical] Respiratory Rate Respiratory Effort / Characteristics Respiratory Depth Respiratory Pattern Blood Pressure Blood Pressure [Right Arm] Blood Pressure Mean Blood Pressure Mean [Right Arm] Blood Pressure Position Pulse Oximetry Oxygen Delivery Method Sepsis Recent Fever Within 48 Hours Sepsis New/Unexplained Change in Mental Status Sepsis Action Taken by Nursing Physical Exam HENT: Exam performed. -Head: Normocephalic and atraumatic. -Right Ear: External ear normal. No mastoid erythema -Left Ear: External ear normal. No mastoid erythema -Mouth/Throat: The oropharynx is clear and moist. No trismus in the jaw. No dental abscesses or uvula swelling. No oropharyngeal exudate or tonsillar abscesses. EYES: Conjunctivae and EOM are normal. Pupils are equal, round, and reactive to light. Right eye exhibits no discharge. Left eye exhibits no discharge. No scleral icterus. NECK: Normal range of motion. Neck supple. No JVD present. No spinous process tenderness present. No rigidity. No tracheal deviation and normal range of motion present. CV: Normal rate, regular rhythm, normal heart sounds and intact distal pulses. There is no peripheral edema. Palpable radial pulses bue. PULM/CHEST: Effort normal and breath sounds normal. No respiratory distress. No stridor. no wheezes. no rales. MUSC/SKEL: Normal range of motion. There is no peripheral edema, tenderness or deformity. NEURO: alert and oriented to person, place, and time. normal strength. No cranial nerve deficit or sensory deficit. Coordination and gait normal. GCS eye subscore is 4. GCS verbal subscore is 5. GCS motor subscore is 6. Cerebellar tests wnl. NIHSS: 0 SKIN: Skin is warm and dry. not diaphoretic. PSYCH:normal mood and affect. Behavior is normal. Judgment and thought content normal. Course Course 1638: The patient was evaluated in room C6. A complete history and physical exam was performed Cardiac monitoring: An order was placed for continuous cardiac monitoring. The monitor shows a rate of 70 with sinus rhythm interpreted by me 1815: Vital signs stable. On reassessment no focal neurological deficits no meningeal signs. Labs are unremarkable. Imaging shows no evidence of CVA but does show small aneurysms. Discussed the case with the patient and her daughter via the patient's cell phone. Explained to them my concern for TIA and they were agreement to be admitted to the hospital for neurology evaluation and further testing. Aspirin ordered for the patient. Patient be admitted to the [facility] hospitalist team. Administered Medications Discontinued Medications Ioversol (Optiray 320 125ml) 119 ml IV ONCE ONE Stop: 11/06/24 17:43 Last Admin: 11/06/24 17:43 Dose: 119 ml Documented By: SUDHAKAR Medical Decision Making Laboratory Data Attestation: I reviewed the patient's lab results. 11/06/24 16:26 11/06/24 16:26 Lab Results 11/06/24 11/06/24 Range/Units 16:26 16:57 WBC 8.31 (4.8-10.8) K/ul RBC 4.44 (4.20-5.40) M/uL Hgb 13.6 (12.0-16.0) g/dl Hct 40.2 (37.0-47.0) % MCV 90.5 (80.0-100.0) fL MCH 30.6 (25.0-34.0) pg MCHC 33.8 (32.0-36.0) g/dL RDW Std Deviation 42.8 (36.4-46.3) fL RDW Coeff of Chidi 13.0 (11.5-14.5) % Plt Count 251 (130-400) K/uL MPV 9.8 (9.4-12.4) fL Immature Gran % (Auto) 0.4 % Neut % (Auto) 61.1 % Lymph % (Auto) 27.6 % Andrew % (Auto) 8.8 % Eos % (Auto) 1.4 % Baso % (Auto) 0.7 % Neut # (Auto) 5.08 (1.40-6.50) K/uL Lymph # (Auto) 2.29 (1.20-3.40) K/uL Andrew # (Auto) 0.73 H (0.11-0.59) K/uL Eos # (Auto) 0.12 (0.00-0.50) K/uL Baso # (Auto) 0.06 (0.00-0.20) K/uL Immature Gran # (Auto) 0.03 (0.01-0.20) K/uL VBG pH 7.42 H (7.36-7.41) VBG pCO2 43 (38-50) mmHg VBG pO2 36 mmHg VBG HCO3 28 mmol/L VBG O2 Saturation 66.3 % VBG Base Excess 2.9 mEq/L Sodium 134 L (136-145) mmol/L Potassium 4.0 (3.5-5.1) mmol/L Chloride 101 (98-107) mmol/L Carbon Dioxide 29 (21-32) mmol/L Anion Gap 4 (3-11) BUN 18 (6-23) mg/dl Creatinine 0.68 (0.6-1.2) mg/dl Est Cr Clr Drug Dosing Not Reportable eGFR 84.24 BUN/Creatinine Ratio 26.5 H (10-20) Glucose 117 H (70-99(Fasting)) mg/dl Calcium 10.4 H (8.6-10.3) mg/dl Total Bilirubin 0.3 (0.2-1.0) mg/dl AST 18 (13-39) U/L ALT 14 (7-52) U/L Alkaline Phosphatase 62 (34-104) U/L Ammonia 17.0 L (18-72) umol/L Total Protein 7.4 (6.0-8.3) gm/dl Albumin 4.5 (3.4-5.0) gm/dl Globulin 2.9 (2.5-4.0) gm/dl Albumin/Globulin Ratio 1.6 (0.9-2) TSH 2.443 (0.300-4.500) uIu/ml Imaging Data Attestation: I personally reviewed and interpreted this imaging study as follows: My Impression: Chest x-ray negative. Airway clear. No pneumothorax. No consolidation. No cardiomegaly or cephalization.. No free air under the diaphragm. No fractures of the skeletal structures. Radiologist's Impression: Chest X-Ray 11/06/24 16:18 HISTORY: Weakness. TECHNIQUE: Portable AP radiograph of the chest COMPARISON: None. FINDINGS: No focal lung consolidation. No pneumothorax or pleural effusion. Normal heart size. Left-sided aortic arch contains atherosclerotic calcification. Midline trachea. No acute osseous abnormality. Included upper abdomen is unremarkable. IMPRESSION: No acute cardiopulmonary findings. Electronically signed by Yg Horvath 11-06-2024 5:[address] 11/06/24 16:28 HISTORY: Amnesia. Altered mental status. TECHNIQUE: CT of the head without contrast. Images are presented in axial, sagittal, and coronal reformats. COMPARISON: None. FINDINGS: No evidence of acute intracranial hemorrhage, abnormal extra-axial fluid collection, mass effect, or midline shift. Mild chronic microvascular ischemic changes. Chiu-white differentiation is maintained. Ventricular caliber is appropriate for the degree of volume loss. Fourth ventricle is midline. The basal cisterns are patent. The soft tissues of the skull base and scalp are unremarkable. The globes and orbits are unremarkable.Left maxillary sinus mucosal thickening with air-fluid level. Mastoid air cells are well aerated. No calvarial fracture. IMPRESSION: 1. No acute intracranial findings. If there is concern for acute infarct, consider brain MRI with diffusion weighted imaging for more sensitive evaluation. 2. Mild volume loss and chronic microvascular ischemic changes. 3. Acute left maxillary sinusitis. Electronically signed by Yg Horvath 11-06-2024 6:04 PM Head CTA 11/06/24 16:28 HISTORY: Amnesia and altered mental status. TECHNIQUE: Helical CT angiography of the brain was performed following uneventful administration 119 mL of Optiray 320 IV contrast. Coronal and sagittal 3D MIP reconstructions are provided. COMPARISON: CT of the head without contrast from the same day. FINDINGS: The intradural vertebral arteries are patent. The basilar artery is patent. The posterior cerebral arteries are patent. Mild atherosclerotic calcification of the cavernous internal carotid arteries. 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 Additional small aneurysm from the supraclinoid left internal carotid artery on series 6 image 86 Measuring 0.3 cm. Both A1 segments are present and patent. Patent anterior communicating artery. The anterior cerebral artery branches are patent. 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 The right M1 and proximal M2 segment branches are patent. The left M1 and proximal M2 segment branches are patent. The more distal MCA branches appear symmetric. The transverse sinuses and superior sagittal sinus appear patent. No enhancing intracranial mass or vascular malformation. The soft tissues about the skull base and scalp are unremarkable. Globes and orbits are unremarkable. Left maxillary sinus mucosal thickening and air-fluid level. IMPRESSION: * No evidence of central vessel occlusion or focal hemodynamically significant stenosis. 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 The findings were discussed with the ordering provider Dr. Neha Mascorro at 6:09 PM on 11/06/2024. Electronically signed by Yg Horvath 11-06-2024 6:10 PM Neck CTA 11/06/24 16:28 HISTORY: Amnesia and altered mental status TECHNIQUE: CT angiography of the neck was performed following administration 119 mL of Optiray 320 IV contrast. Coronal and sagittal 3D MIP reconstructions are provided. COMPARISON: CT of the head and CTA of the head from the same day. FINDINGS: The aortic arch has a normal three-vessel branch pattern. There is mild stenosis of the origin of the left subclavian artery. The common carotid arteries are patent. Partially retropharyngeal course of the right common carotid artery. Atherosclerotic plaque at the carotid bifurcations resulting in less than 50% narrowing of the proximal internal carotid arteries. There is luminal irregularity/beading of the mid and distal right internal carotid artery. The internal carotid arteries are patent to the skull base. The cervical internal carotid arteries are patent and relatively codominant. The soft tissues of the neck and upper chest are unremarkable. Left maxillary sinus mucosal thickening and air-fluid level. The lung apices demonstrate no suspicious findings. There is biapical pleural thickening and scarring. Degenerative changes of the spine. No acute osseous abnormality is identified. IMPRESSION: 1. No evidence of carotid or vertebral significant stenosis, occlusion, or dissection. 2. Luminal irregularity/beading involving the mid and distal right cervical internal carotid artery could represent vasospasm or fibromuscular dysplasia. 3. Atherosclerotic plaque at the carotid bifurcations resulting in less than 50% stenosis of the proximal internal carotid arteries. 4. Chronic and/or incidental findings as detailed above. Electronically signed by Yg Horvath 11-06-2024 6:14 PM ECG Data Attestation: I personally reviewed and interpreted this ECG as follows: Rate (beats per minute): 72 Rhythm: + normal sinus ECG Intervals/blocks: + Normal VT and + Normal QT-c ECG ST segments: + Normal ST segments Additional Comments: QRS 68 MDM Narrative 1638: The patient was evaluated in room C6. A complete history and physical exam was performed Cardiac monitoring: An order was placed for continuous cardiac monitoring. The monitor shows a rate of 70 with sinus rhythm interpreted by me 1815: Vital signs stable. On reassessment no focal neurological deficits no meningeal signs. Labs are unremarkable. Imaging shows no evidence of CVA but does show small aneurysms. Discussed the case with the patient and her daughter via the patient's cell phone. Explained to them my concern for TIA and they were agreement to be admitted to the hospital for neurology evaluation and further testing. Aspirin ordered for the patient. Patient be admitted to the [facility] hospitalist team. Impression & Plan TIA (transient ischemic attack) Discharge Plan Visit Data Chief Complaint: Confusion Stated Complaint: CONFUSION, MEMORY PROB. HEAD PRESSURE ED Provider: Adolfo Gallo Discharge Problem: TIA (transient ischemic attack) Patient Disposition: Admitted As Inpatient Forms Stand Alone Forms: My [facility] Prescriptions Prescriptions: No Action Prolia 60 mg/mL syringe 60 mg subcut Q6MO Patient Comments: BUY and Bill Approved form 05/15/23-05/15/24 2 injections [id number] escitalopram oxalate 20 mg tablet 20 mg PO QAM Qty: 90 3RF simvastatin 40 mg tablet 40 mg PO HS Qty: 90 3RF pantoprazole 20 mg tablet,delayed release (DR/EC) 20 mg PO DAILY Qty: 90 1RF Gemtesa 75 mg tablet 75 mg PO DAILY Qty: 90 3RF polyethylene glycol 3350 [Miralax] 17 gram/dose powder 17 g PO QAM calcium carbonate 260 mg calcium (648 mg) tablet 260 mg PO DAILY Metamucil (with sugar) 3.4 gram/12 gram powder 1 tbsp PO HS PRN famotidine 20 mg tablet 20 mg PO QPM Qty: 90 2RF estradiol 0.01 % (0.1 mg/gram) cream 1 g vaginal 2XWK Qty: 42.5 3RF Rx Instructions: for 14 days ipratropium bromide 21 mcg (0.03 %) spray,non-aerosol 2 spray intranasal TID PRN (Reason: nasal drainage) Qty: 30 5RF Rx Instructions: administer into each nostril fluticasone propionate 50 mcg/actuation spray,suspension 2 spray intranasal DAILY 28 Days Qty: 15.8 2RF Rx Instructions: administer into each nostril multivitamin Tablet 1 tab PO QAM docusate sodium [Colace] 100 mg Capsule 100 mg PO QPM cholecalciferol (vitamin D3) [Vitamin D3] 25 mcg (1,000 unit) tablet 5,000 unit PO QPM Referrals Referrals: Catrachita Srinivasan MD [Primary Care Provider] -
[2024-11-06] MEDS: CLOPIDOGREL BISULFATE 300 MG TAB PO ONE (19:04)
[2024-11-06] MEDS: hydrALAZINE HCL 20 MG/ML VIAL IV STA (19:45)
[2024-11-06] MEDS ORDERED: IPRATROPIUM BROMIDE NASAL SPRAY 0.06% 15ML NAE PRN (21:01)
[2024-11-06 21:18] LABS: Appearance Urine Clear (Clear); Bilirubin Urine Negative (Negative); Blood Urine Negative (Negative); Color Urine Yellow; Glucose Urine UA Negative (Negative); Ketones Urine Negative (Negative); Leukocyte Esterase Urine Negative (Negative); Nitrite Urine Negative (Negative); Protein Urine Negative (Negative); Specific Gravity Urine 1.011 (1.000-1.030); Urobilinogen Urine Negative (Negative)
[2024-11-06] MEDS: FAMOTIDINE 20 MG TAB PO SCH (21:55)
[2024-11-06] MEDS: ATORVASTATIN 40 MG TAB PO SCH (21:55)
[2024-11-06] MEDS: DOCUSATE SODIUM 100 MG CAP PO SCH (21:55)
--- NOTE | 2024-11-07 00:15 | Magnetic Resonance Report ---
Exam(s): MRI HEAD Without Contrast EXAM: MR Head Without Intravenous Contrast CLINICAL HISTORY: Reason for exam: aphasia. TECHNIQUE: Magnetic resonance images of the head/brain without intravenous contrast in multiple planes. COMPARISON: Prior head CT from November 06, 2024. FINDINGS: Brain: Moderate nonspecific white matter changes. No mass. No hemorrhage. No acute infarct. The flow voids at the base the brain are intact. Ventricles: Moderate ventriculomegaly. Bones/joints: Unremarkable. No acute fracture. Sinuses: Chronic ethmoid and maxillary sinusitis. No acute sinusitis. Mastoid air cells: Unremarkable as visualized. No mastoid effusion. Orbits: Bilateral lens replacements. IMPRESSION: No evidence of acute intracranial pathology. Electronically signed by: Nava Masters MD 11/07/24 00:14 AM
[2024-11-07 06:28] LABS: Basophils # (auto) 0.05 K/uL (0.00-0.20); Basophils % (auto) 0.8 %; Eosinophils % (auto) 1.5 %; Hematocrit (blood only) 35.4 % (37.0-47.0); Hemoglobin 12.3 g/dl (12.0-16.0); Immature Granulocytes # (auto) 0.01 K/uL (0.01-0.20); Immature Granulocytes % (auto) 0.2 %; Lymphocytes # (auto) 1.96 K/uL (1.20-3.40); Lymphocytes % (auto) 29.9 %; Mean Corpuscular Hemoglobin 30.8 pg (25.0-34.0); Mean Corpuscular Hgb Conc 34.7 g/dL (32.0-36.0); Mean Corpuscular Volume 88.5 fL (80.0-100.0); Mean Platelet Volume 9.4 fL (9.4-12.4); Monocytes # (auto) 0.75 K/uL (0.11-0.59); Monocytes % (auto) 11.4 %; Neutrophils # (auto) 3.69 K/uL (1.40-6.50); Neutrophils % (auto) 56.2 %; Platelet Count 221 K/uL (130-400); RDW Coefficient of Variation 12.9 % (11.5-14.5); RDW Standard Deviation 42.1 fL (36.4-46.3); White Blood Count 6.56 K/ul (4.8-10.8)
[2024-11-07 06:44] LABS: BUN Creatinine Ratio 23.5 (10-20); Calcium 9.6 mg/dl (8.6-10.3); Chol HDL Ratio 3.4 (0-5); Creatinine Clr Calc Pharmacy 48.2 ml/min; Potassium 3.8 mmol/L (3.5-5.1)
[2024-11-07 07:54] VITALS: RESP 18
[2024-11-07 09:12] LABS: Estimated Average Glucose 128 mg/dl; Hemoglobin A1C 6.1 % (4.5-5.6)
[2024-11-07] MEDS: VIBEGRON 75 MG TAB PO SCH (09:24)
[2024-11-07] MEDS: ESCITALOPRAM OXALATE 20 MG TAB PO SCH (09:24)
[2024-11-07] MEDS: CLOPIDOGREL BISULFATE 75 MG TAB PO SCH (09:24)
[2024-11-07] MEDS: MULTIVITAMIN TAB PO SCH (09:24)
[2024-11-07] MEDS: POLYETHYLENE (MIRALAX) 17 GM PACK PO SCH (09:25)
[2024-11-07] MEDS: FLUTICASONE PROPIONATE NA SPR 16 GM BTL NAE SCH (09:25)
[2024-11-07] MEDS: PANTOprazole 40 MG TAB PO SCH (09:25)
--- NOTE | 2024-11-07 11:14 | Neurology Consultation ---
Date of Consultation November 07, 2024 Assessment & Plan (1) TIA (transient ischemic attack): History of Present Illness Attending Physician: Sha Mock History of Present Illness S: pt doing well. no speech change. mri brain negative. chart reviewed. no focal deficits. Admission HPI: 89-year-old female with PMH of prediabetes and dyslipidemia presents to the hospital with an episode of aphasia. This pccurred while she was talking to her daughter on the phone. Patient was trying to read a the amount owed on the bill and couldn't find the right words.. The amount was 80, and patient would say 8 thousand struggling with moments of silence. Daughter asked patient to go to the hospital which patient interpreted as driving herself instead of calling an ambulance. During the drive, patient reportsno other symptoms of focal weakness or paresthesias. Once in the ED, Patient's aphasia have also resolved and no neurological deficits were noted on exam by ER doctor. She had a CTA head and neck which was negative for any acute stroke. Admission was called for TIA Allergies Allergy/AdvReac Type Severity Reaction Status Date / Time codeine AdvReac Unknown 40 yrs ago Verified 11/06/24 19:39 : nausea levofloxacin [From Levaquin] AdvReac Unknown UPSET Verified 11/06/24 19:39 STOMACH Home Medications Medication Instructions Recorded Confirmed Type docusate sodium 100 mg capsule 100 mg PO QPM 07/09/18 11/06/24 History (Colace) multivitamin 1 tab PO QAM 07/09/18 11/06/24 History cholecalciferol (vitamin D3) 25 5,000 unit PO QPM 11/15/21 11/06/24 History mcg (1,000 unit) tablet (Vitamin D3) polyethylene glycol 3350 17 17 g PO QAM 03/11/23 11/06/24 History gram/dose oral powder (Miralax) denosumab 60 mg/mL subcutaneous 60 mg subcut Q6MO 05/16/23 11/06/24 History syringe (Prolia) calcium carbonate 260 mg PO DAILY 10/23/23 11/06/24 History ipratropium bromide 21 mcg (0.03 2 spray intranasal TID PRN nasal 04/02/24 11/06/24 Rx %) nasal spray drainage #30 mL famotidine 20 mg tablet 20 mg PO QPM #90 tabs 05/19/24 11/06/24 Rx escitalopram oxalate 20 mg tablet 20 mg PO QAM #90 tabs 07/16/24 11/06/24 Rx psyllium husk (with sugar) 3.4 1 tbsp PO HS 09/02/24 11/06/24 History gram/12 gram oral powder (Metamucil (with sugar)) estradiol 0.01% (0.1 mg/gram) 1 g vaginal 2XWK #42.5 grams 09/29/24 11/06/24 Rx vaginal cream simvastatin 40 mg tablet 40 mg PO HS #90 tabs 09/30/24 11/06/24 Rx pantoprazole 20 mg tablet,delayed 20 mg PO DAILY #90 tabs 10/04/24 11/06/24 Rx release vibegron 75 mg tablet (Gemtesa) 75 mg PO DAILY #90 tabs 10/06/24 11/06/24 Rx fluticasone propionate 50 2 spray intranasal DAILY PRN 11/06/24 11/06/24 History mcg/actuation nasal Congestion spray,suspension Patient History Medical History Difficulty swallowing feeling of something in my throat: reason for upcoming procedure. Recurrent UTI not current/hx of Urinary incontinence Osteoporosis Diverticular disease Abdominal pain of multiple sites left / ongoing problem: reason for upcoming procedure. Polymyalgia Osteoarthritis GERD (gastroesophageal reflux disease) Hyperlipidemia Anxiety Surgical History History of eye surgery for dry eye ? / both eyes. History of surgery injection for urinary incontinence/unsuccessful History of cataract surgery BOTH History of esophagogastroduodenoscopy (EGD) History of colonoscopy History of tooth extraction wisdom teeth History of tonsillectomy and adenoidectomy Family History Unknown Coronary arteriosclerosis Grandfather (Maternal) Pancreatic neoplasm Myocardial infarction Father Hypertension Cardiac disorder Grandmother (Paternal) Hypertension Grandfather (Paternal) Hypertension Denies family history of Ovarian cancer Prostate cancer Crohn's disease Breast cancer Bleeding disorder Colorectal cancer Social History Smoking Status: Never smoker Tobacco Type: Cigarettes Age Started Using Tobacco: 22; Age Quit Using Tobacco: 57; packs per day: 0.10; Second Hand Exposure: No; Do You Dip or Chew Tobacco: No; Hx Alcohol Use: No Hx Substance Use: No Preferred Language: Irish Communication Ability: Effective Visual Impairment: No Limitations Hearing Ability: Normal Block Paver Required: No Beliefs That Will Affect Care: None marital status: / Current Living Situation: Alone current occupational status: retired How many Children do You have: 3 Other Information That Helps Us Care for You: No Feels Safe at Home: Yes Safety Concerns: Feels Safe At This Time Childhood Exposure to Second-Hand Smoke: No Diet: regular caffeine: No during the past year weight has: remained stable Dental Care, Regularly: Yes Physical Activity Frequency: Daily Seatbelt Use: always Sunscreen Use: Yes Do you think of yourself as: straight/heterosexual Assistive Devices: None Review of Systems Review of Systems: All systems reviewed & are unremarkable except as noted in Subjective Constitutional: as per Subjective / HPI Eyes: as per Subjective / HPI Ear, Nose, Mouth, Throat: as per Subjective / HPI Respiratory: as per Subjective / HPI Cardiovascular: as per Subjective / HPI Gastrointestinal: as per Subjective / HPI Musculoskeletal: as per Subjective / HPI Integumentary: as per Subjective / HPI Neurologic: as per Subjective / HPI Psychiatric: as per Subjective / HPI Endocrine: as per Subjective / HPI Hematologic / Lymphatic: as per Subjective / HPI Allergy / Immunological: as per Subjective / HPI Exam (Neuro) Physical Exam: HEENT: normocephalic Neuro: Mental: AOx4, fluent speech, normal comprehension, no apraxia, no L/R confusion, no neglect CN: PERRL, Full EOM, symmetric face, midline T/U/P, Motor: No abnormal movements, normal tone and bulk, 5/5 t/o bilaterally Coord: intact FNT b/l DTR: 2+ sym b/l Gait: intact grossly Impression: 89 yo female with resolved transient speech disturbance, overall picture suggestive of TIA. no focal deficits. CTA findings are incidental in nature and no need for further work up at this point. Recommendations: 1. Standard stroke work up as planned 2. antiplatelet therapy: for this pt, re commend 21 days. * DAPT (dual antiplatelet therapy): start for pts with ABCD2 score 4 or higher. Initial loading dose with ASA 325mg and Plavix 300mg (if pt has not been started), then ASA 81mg daily and Plavix 75mg daily. Continue DAPT for 21 days if found small vessel disease only or continue for 90 days if found to have intracranial large artery atherosclerosis. After that, can continue single antiplatelet therapy (either ASA or Plavix). 3. Images: TTE with bubble 4. Permissive Hypertension for next 24 h rs. Keep SBP goal range less than 220. Avoid hypotension. Do not stop beta-uche if on it. 6. Long-term SBP goal less than 130. 7. Plenty of hydration including IV flui d if possible (use isotonic solution) next 1-2 days. Avoid hypovolemia and hypotension. 8. Initiate DVT prevention therapy. 9. Avoid hypoglycemia, serum glucose goa l during hospitalization: 140-180. 10. Long-term HgA1c goal less than 7. 11. Start statin if not on it and no abs olute contraindication, long-term LDL goal less than 70. 12. Head of bed up 30 degrees if possibl e. 13. Stroke education by nursing and appr opriate staff. 14. Telemetry monitoring. Consider joint terminal attack controller cardiac monitoring, i.e. MCOT (mobile cardiac outpatient telemetry) or ICM (insertable satellite project site monitor, e.g. LINQ), if never had [facility] cardiac monitoring done previously. And if found to have atrial flutter or fibrillation, should consider anticoagulation therapy if no contraindication. pt continue to be stable, likely can be discharged tomorrow and continue f/u with PCP. call again if new question. Chart reviewed I have spent more than 50% educating patient about potential diagnosis and neurological evaluation and coordinating care with patient's treatment team. Total time spent (including chart review and coordination of care): 60 min (this includes chart review). Results & Data Vital Signs (Past 12 Hours) Vital Signs Temp Pulse Pulse Resp BP BP Pulse Ox 11/07/24 07:54 36.3 C L 75 18 146/67 H 94 11/07/24 05:02 36.6 C 78 16 118/63 96 11/07/24 00:47 36.5 C 74 16 129/75 96 11/07/24 00:00 70 119/78 11/06/24 22:30 76 11/06/24 22:19 36.5 C 75 16 175/74 H 97 O2 Del Method 11/07/24 07:54 Room Air 11/07/24 05:02 Room Air 11/07/24 00:47 Room Air 11/07/24 00:00 11/06/24 22:30 11/06/24 22:19 Room Air PG Care Time/CCT Total # of Minutes Spent Total Time Spent with Patient: Total time spent is greater than 50% in coordination of care (as documented) at patient's floor/unit and/or counseling patient: Coding Level of Care Code 86171 IN/OBS CONSULT LVL 4,60M Diagnoses TIA (transient ischemic attack) G45.9
[2024-11-07 12:06] VITALS: PULSE 78; TEMP 97.7; O2SAT 93
--- NOTE | 2024-11-07 12:56 | Discharge Summary ---
Date of Service November 07, 2024 Admission HPI Per Admitting Provider 89-year-old female with PMH of prediabetes and dyslipidemia presents to the hospital with an episode of aphasia. This pccurred while she was talking to her daughter on the phone. Patient was trying to read a the amount owed on the bill and couldn't find the right words.. The amount was 80, and patient would say 8 thousand struggling with moments of silence. Daughter asked patient to go to the hospital which patient interpreted as driving herself instead of calling an ambulance. During the drive, patient reportsno other symptoms of focal weakness or paresthesias. Once in the ED, Patient's aphasia have also resolved and no neurological deficits were noted on exam by ER doctor. She had a CTA head and neck which was negative for any acute stroke. Admission was called for TIA Principal Diagnosis TIA Discharge Exam Constitutional: well-appearing, no acute distress HEENT: NCAT, no conjunctival injection CV: regular rhythm, no murmur appreciated, extremities well-perfused, no LE edema Resp: CTABL, no wheezes/rales/rhonchi appreciated, no increased work of breathing MSK: no gross deformities appreciated Skin: warm, dry, no rash appreciated Neuro: alert, oriented, no focal neurologic deficit appreciated- CN II-XII intact Discharge Data Allergies Allergy/AdvReac Type Severity Reaction Status Date / Time codeine AdvReac Unknown 40 yrs ago Verified 11/06/24 19:39 : nausea levofloxacin [From Levaquin] AdvReac Unknown UPSET Verified 11/06/24 19:39 STOMACH Consultations 11/06/24 18:15 ED Decision to Admit Stat 11/06/24 18:28 Consult Neurology Routine Ordered Studies 11/06/24 16:28 CT head/brain wo con Stat CTA head w con [CT angio head w con] Stat CTA neck with con [CT angio neck with con] Stat 11/06/24 18:27 MRI Brain [MR brain wo con] Urgent Hospital Course (1) TIA (transient ischemic attack): (2) Hyperlipidemia: Plan (1) Transient ischemic attack: Expressive aphasia in an 89 yo female with hyperlipidemia and prediabetes. Patient no longer having any focal deficits or signs of aphasia. 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 TTE with bubble was completed but read is still pending Plan: switch to high dose statin 40 mg of atorvastatin DAPT with asa/plavix x 21 days and then just asa alf blood pressure goal less than 130 systolic Consider MCOT as OP to evaluate afib/flutter-> has not been noted on telemetry while admitted (2) Hyperlipidemia: - switch from simvastatin to atorvastatin as per above - LDL= 87, goal below 70 - repeat lipid panel/CMP in 6-8 weeks (3) Aneurysm - as noted above, unlikely contributed to current presentation, but consider f/u imaging for monitor/tight blood pressure control Total Time Total Time Spent Total Time Spent (In Minutes): See Attending attestation Discharge Plan Discharge Items Patient Disposition: Home - Self-Care Reason For Visit: TIA Discharge Diagnosis: TIA Activity: Per Instructions section Follow-up/Referrals: Catrachita Srinivasan MD [Primary Care Provider] - Yg Rosado MD [Physician] - (Needs 1 month f/u ) Addtl Attending Provider Instructions: You were admitted with concern for TIA (transient ischemic attack). We did not find anything on your brain imaging to indicate an acute stroke. We are going to start you on aspirin and Plavix, both of which you should take one per day. You should continue to take the aspirin and Plavix for a total of 21 days, after you can stop the Plavix and continue on with the aspirin. Be sure to drink plenty of fluids for the next 1-2 days. We switched your simvastatin to atorvastatin, because this will help to lower your cholesterol more, with the goal of preventing future villaseñor. We would like you to follow up with both your primary care doctor and neurology. If they do no call you in the next 1-2 days, then you should call their offices to set up an appointment. Stand-Alone Forms: My [facility] [employer], Smoking Cessation Medications and DC Order Prescriptions: New atorvastatin 40 mg tablet 40 mg PO DAILY Qty: 30 0RF clopidogrel [Plavix] 75 mg tablet 75 mg PO DAILY 21 Days Qty: 21 0RF aspirin [Adult Low Dose Aspirin] 81 mg tablet,delayed release (DR/EC) 81 mg PO DAILY Qty: 30 0RF Continued Prolia 60 mg/mL syringe 60 mg subcut Q6MO Patient Comments: SHERYL and Steven Approved form 05/15/23-05/15/24 2 injections [id number] escitalopram oxalate 20 mg tablet 20 mg PO QAM Qty: 90 3RF pantoprazole 20 mg tablet,delayed release (DR/EC) 20 mg PO DAILY Qty: 90 1RF Gemtesa 75 mg tablet 75 mg PO DAILY Qty: 90 3RF polyethylene glycol 3350 [Miralax] 17 gram/dose powder 17 g PO QAM calcium carbonate 260 mg calcium (648 mg) tablet 260 mg PO DAILY Metamucil (with sugar) 3.4 gram/12 gram powder 1 tbsp PO HS famotidine 20 mg tablet 20 mg PO QPM Qty: 90 2RF estradiol 0.01 % (0.1 mg/gram) cream 1 g vaginal 2XWK Qty: 42.5 3RF ipratropium bromide 21 mcg (0.03 %) spray,non-aerosol 2 spray intranasal TID PRN (Reason: nasal drainage) Qty: 30 5RF Rx Instructions: administer into each nostril multivitamin Tablet 1 tab PO QAM docusate sodium [Colace] 100 mg Capsule 100 mg PO QPM cholecalciferol (vitamin D3) [Vitamin D3] 25 mcg (1,000 unit) tablet 5,000 unit PO QPM fluticasone propionate 50 mcg/actuation spray,suspension 2 spray INTRANASAL DAILY PRN (Reason: Congestion) Discontinued simvastatin 40 mg tablet 40 mg PO HS Qty: 90 3RF Discharge Orders: Discharge Order (Routine); Ordered 11/07/24 Ordered By: Lin Duff Admission Data Admit Date/Time: 11/06/24 18:27 Attending Provider: Sha Mock Admit Provider: Sha Mock Primary Care Provider: Catrachita Srinivasan Other Providers: Sha Mock; Yg Rosado
[2024-11-07 13:45] VITALS: BP 129/75
--- NOTE | 2024-11-07 22:39 | XCELERA ---
[id number]
--- NOTE | 2024-11-08 05:52 | Electrocardiogram Report ---
Test Reason : Blood Pressure : */* mmHG Vent. Rate : 72 BPM Atrial Rate : 72 BPM P-R Int : 166 ms QRS Dur : 68 ms QT Int : 374 ms P-R-T Axes : 72 51 75 degrees QTcB Int : 409 ms Normal sinus rhythm Normal ECG When compared with ECG of 06-Sep-1996 09:27, No significant change Confirmed by Joon Butler ([id number]) on 11/08/2024 5:51:38 AM Referred By: REFERRED SELF Confirmed By: Joon Butler
== END 2024-11-07 14:54 | disposition home or self-care (01) ==
LOC: ED 15:57 → EDINP 18:27 → INTOOBSV 18:27 → 4W 21:07